=== PATIENT | male | born 1970 | race African-American/Black ===

== ENCOUNTER 2017-10-28 07:04 | Emergency (ER) | payer SELFPAY ==
[~2017-10-28] VITALS: Ht 175.3 cm; Wt 106.6 kg
[2017-10-28 07:17] VITALS: BP 136/73
[2017-10-28] MEDS ORDERED: DIAZ5TAB PO (07:28)
[2017-10-28] MEDS ORDERED: IBUP-1060 PO (07:28)
[2017-10-28] MEDS ORDERED: HYDR-971 PO (07:28)
--- NOTE | 2017-10-28 07:43 | PHYS DOC ---
Past Medical History Past Medical History: Pneumonia, STD Past Surgical History: No Surgical History Alcohol Use: Occasionally Drug Use: Marijuana Adult General Chief Complaint Chief Complaint: BACK PAIN - NO INJURY [facility] HPI Patient is a 47 year old male who presents with neck pain. The patient does have a known prior history of chronic low back pain. He also states that he has been sleeping on a floor over the last 5 years because mattresses cause his back to hurt. Patient states he normally sleeps very restlessly and it is not uncommon for him to wake up with various musculoskeletal pain complaints. Today , he presents complaining of right-sided neck pain and muscle spasm that started 4 days earlier. states he awoke with the symptoms. He did not have any trauma. He had no numbness, tingling, weakness. The pain is located over the right side of the neck and does not radiate. He does have some subjective limitation of range of motion due to the pain. Review of Systems Review of Systems Constitutional: Denies fever or chills Eyes: Denies change in visual acuity, redness, or eye pain HENT: Denies nasal congestion or sore throat Respiratory: Denies cough or shortness of breath Cardiovascular: No additional information not addressed in HPI : Denies dysuria or hematuria Musculoskeletal: chronic recurrent back pain Integument: Denies rash or skin lesions Neurologic: Denies headache Endocrine: Denies polyuria All other systems were reviewed and found to be within normal limits, except as documented in this note. Allergies Allergies Allergies Coded Allergies Type Severity Reaction Last Updated Verified No Known Drug Allergies 03/02/16 No Physical Exam Physical Exam Constitutional: Well developed, well nourished, no acute distress, non-toxic appearance HENT: Normocephalic, atraumatic, bilateral external ears normal, oropharynx moist Neck: Palpable muscle spasm over the right trapezius muscle. Some limitation of range of motion with rotation of the head to the left and also sidebending to the left compared to the right. These activities to cause pain and spasm on the right side of the neck. There is no midline posterior cervical spine tenderness and no step-offs. Cardiovascular:Heart rate regular rhythm, no murmur Lungs & Thorax: Bilateral breath sounds clear to auscultation Skin: Warm, dry, no erythema Extremities: 5/5 motor strength all extremities Neurologic: Alert and oriented X 3 Psychologic: Affect normal Current Patient Data Vital Signs Vital Signs Date Time Temp Pulse Resp B/P (MAP) Pulse Ox O2 Delivery O2 Flow Rate FiO2 10/28/17 07:17 98.1 79 18 136/73 (94) 99 Room Air 98.1 EKG EKG [] Radiology/Procedures Radiology/Procedures [] Course & Med Decision Making Course & Med Decision Making Pertinent Labs and Imaging studies reviewed. (See chart for details) Patient is evaluated in the emergency department for symptoms most consistent with torticollis. He has no focal neurologic findings. He had been using Tylenol at home with minimal relief. Today, he is driving and is not given any medications in the emergency department. At discharge, he is prescribed ibuprofen for baseline pain control. He is given Valium for muscle relaxants, and [place] for severe pain. Appropriate use of these medications is described and all of his questions are answered prior to discharge home. Patient is agreeable. He will return to the ER for any new or worsening symptoms or follow up with his primary care doctor. Dragon Disclaimer Dragon Disclaimer This electronic medical record was generated, in whole or in part, using a voice recognition dictation system. Departure Departure Impression: Primary Impression: Torticollis, acute Disposition: HOME, SELF-CARE Condition: GOOD Patient Instructions: Torticollis, Acute Scripts Ibuprofen (IBUPROFEN) 800 Mg Tablet 800 MG PO PRN TID, #30 TAB take with food or milk to avoid upsetting stomach Prov: MOE OLIVARES DO 10/28/17 Hydrocodone/Apap 5-325 (NORCO 5-325 TABLET) 1 Each Tablet 1-2 EACH PO PRN Q6HRS PRN for severe pain, #20 as needed for pain Prov: MOE OLIVARES DO 10/28/17 Diazepam (VALIUM) 5 Mg Tablet 5 MG PO TID PRN for MUSCLE SPASMS, #21 TAB Prov: MOE OLIVARES DO 10/28/17 MOE OLIVARES DO Oct 28, 2017 07:43
== END 2017-10-28 07:47 | disposition home or self-care (01) ==
LOC: ER 07:04
DX: M43.6 Torticollis (principal); M54.5 Low back pain; G89.29 Other chronic pain
CPT/HCPCS: 99283

== ENCOUNTER 2020-12-15 17:55 | Inpatient (IN) | payer SELFPAY ==
[~2020-12-15] VITALS: Ht 175.3 cm; Wt 105.3 kg
[~2020-12-15 17:55] MED LIST: DIAZ5TAB PO; HYDR-3164 PO; IBUP-1060 PO
[2020-12-15] MEDS ORDERED: DEXAMETHASONE SOD PHOS 4 MG/ML VIAL IVP ONE (18:15)
[2020-12-15] MEDS ORDERED: IV NORMAL SALINE 1000ML BAG 1,000 ML IV ONE ×2 (18:15→21:30)
[2020-12-15] MEDS ORDERED: cefTRIAXone IV Push 1 GM VIAL. IVP ONE (18:30)
[2020-12-15] MEDS ORDERED: ACETAMINOPHEN 500 MG TABLET PO ONE (18:30)
[2020-12-15 18:33] LABS: BASO % 0 % (0-3); EOS # 0.1 x10^3/uL (0.0-0.7); EOS % 1 % (0-3); HEMATOCRIT 43.5 % (39.0-53.0); HEMOGLOBIN 14.9 g/dL (13.0-17.5); LYMPH # 0.4 x10^3/uL (1.0-4.8); LYMPH % 4 % (24-48); MEAN CORPUSCULAR HEMOGLOBIN 30 pg (25-35); MEAN CORPUSCULAR HGB CONC 34 g/dL (31-37); MEAN CORPUSCULAR VOLUME 88 fL (79-100); MONO # 1.8 x10^3/uL (0.0-1.1); MONO % 19 % (0-9); NEUT # 6.9 x10^3/uL (1.8-7.7); NEUT % 75 % (31-73); PLATELET COUNT 292 x10^3/uL (140-400); RED BLOOD COUNT 4.96 x10^6/uL (4.30-5.70); RED CELL DISTRIBUTION WIDTH 14.5 % (11.5-14.5); WHITE BLOOD COUNT 9.1 x10^3/uL (4.0-11.0)
--- NOTE | 2020-12-15 18:37 | PHYS DOC ---
Past Medical History Past Medical History: Pneumonia, STD, TB Additional Past Medical Histor: COVID-/NOVEMBER 2020 Past Surgical History: No Surgical History Smoking Status: Never Smoker Alcohol Use: Occasionally Drug Use: Marijuana General Adult EDM: Chief Complaint: SHORTNESS OF BREATH HPI: HPI: Patient is a 50 year old male with past medical history of tuberculosis in 2009 and COVID-19 in November 28 is presenting today with shortness of breath, weakness, headache, nonproductive cough, issues with taste for about 3 days. Patient states he did have a little bit of pleuritic chest pain a few days ago but this is since gone away. Chest pain only occurred when the patient coughed. Patient does state that he tested positive for Covid in November. Patient does state that he did get better after his Covid infection, however he did get worse again about 3 days ago. Patient says he has gotten vaccinated with 1 shot. Patient says he took Tylenol 500 mg last night. This did not help. Patient denies any nausea, vomiting, diarrhea, constipation. Patient denies any significant urinary symptoms like frequency and urgency or blood but does endorse a darker color to his urine. Review of Systems: Review of Systems: Constitutional: Nurses fevers denies chills Eyes: Denies redness or eye pain HENT: Denies nasal congestion or sore throat Respiratory: Endorses nonproductive cough and shortness of breath Cardiovascular: Denies palpitations but endorses some chest pain a few days ago that was worse with coughing GI: Denies abdominal pain, nausea, or vomiting : Denies dysuria or hematuria but endorses some darkening of the urine Musculoskeletal: Denies back pain or joint pain Integument: Denies rash or skin lesions Neurologic: Denies headache, focal weakness or sensory changes Complete systems were reviewed and found to be within normal limits, except as documented in this note. Heart Score: C/O Chest Pain: No Current Medications: Current Medications Medications (Trade) Dose Ordered Sig/Liseth Start Time Stop Time Status Last Admin Dose Admin Acetaminophen (Tylenol) 500 mg 1X ONCE 12/15/20 18:30 12/15/20 18:31 UNV Ceftriaxone Sodium (Rocephin) 1 gm 1X ONCE 12/15/20 18:30 12/15/20 18:31 UNV Dexamethasone Sodium Phosphate (Decadron) 10 mg 1X ONCE 12/15/20 18:15 11/7/21 18:16 UNV Sodium Chloride 1,000 ml @ 1,000 mls/hr 1X ONCE 12/15/20 18:15 12/15/20 19:14 UNV Allergies: Allergies: Allergies Coded Allergies Type Severity Reaction Last Updated Verified No Known Drug Allergies 03/02/16 No Physical Exam: PE: Constitutional: Well developed, well nourished, no acute distress, non-toxic appearance HENT: Normocephalic, atraumatic Eyes: PERRL, EOMI, conjunctiva normal, no discharge Neck: Normal range of motion, no tenderness, supple, no neck stiffness Lungs & Thorax: No respiratory distress, equal chest rise and fall, lung sounds clear to auscultation bilaterally with no crackles or wheezes Abdomen: Soft, no tenderness Skin: Warm, dry, no erythema, no rash Back: No tenderness, no CVA tenderness Extremities: No tenderness, ROM intact, no edema Neurologic: Alert and oriented X 3, normal motor function, normal sensory function, no focal deficits noted Psychologic: Affect normal, judgment normal Current Patient Data: Vital Signs: Vital Signs Date Time Temp Pulse Resp B/P (MAP) Pulse Ox O2 Delivery O2 Flow Rate FiO2 12/15/20 18:04 101.5 120 17 156/86 (109) 99 Room Air 101.5 EKG: EK: Sinus tachycardia with a rate of 116 bpm, normal axis, no significant ST segment changes, no T wave inversions, P waves inverted in V1 and V2, MI 108 ms, QRS 90 ms, QT/QTc 296/417 ms Radiology/Procedures: Radiology/Procedures: PROCEDURE: CT ANGIOGRAPHY CHEST CT angiography chest with contrast PQRS statement: CT scans at this facility use dose reduction including either automated exposure control, iterative reconstructions, and /or weight based radiation dosing via mA and kV modification when appropriate to reduce radiation dose to as low as reasonably achievable. Contrast: 100 mL Omnipaque 350 intravenous contrast with 3-D MIP reconstructions of the arteries acquired. HISTORY: Dyspnea with exertion, fever, cough. FINDINGS: At the AP window the mediastinum there is a oblong soft tissue nodule measuring 3.1 x 1.7 cm which may be an enlarged lymph node rightward of which are 2 smaller prominent lymph nodes measuring 1 cm each, there is soft tissue edema surrounding this adenopathy which also surrounds the aortic arch and takeoff of the great vessels at the upper mediastinum although the aorta and great vessels demonstrate no dissection or wall thickening or other abnormality. No pericardial effusion evident. Esophagus is normal. The heart size normal. No pulmonary artery emboli. Calcified granulomas right upper lobe and a 2 cm large calcified lymph node right hilum. At the left upper lobe there is a solid irregular and finally spiculated oblong nodule measuring 13 x 6 mm image 30, more superiorly at the left upper lobe apex separate area of multifocal nodularity largest of which measures 8 mm on image 15. 4 mm solid nodule left upper lobe anteriorly image 53. Mild atelectasis inferior lingula. 5 mm oblong nodule right upper lobe image 35. Mild fibrosis right upper lobe apex. No pleural effusions. Bones are unremarkable. IMPRESSION: 1. No pulmonary emboli. 2. Mediastinal adenopathy at the AP window largest lymph node measuring 3.1 x 1.7 cm. There is mild mediastinal edema surrounding the adenopathy as well as surrounding the aortic arch and great vessels however no vascular abnormality is evident. Given the presence of left upper lobe suspicious nodules this is concerning for metastatic adenopathy. 3. Dominant 13 x 8 mm solid irregular finely spiculated nodule of the left upper lobe concerning for lung malignancy. There are smaller nodules at the left upper lobe apex measuring 8 mm or less in size which are indeterminate. 5 mm right upper lobe nodule indeterminate. Electronically signed by: Leidy Lacy MD (12/15/2020 7:46 PM) [facility] [place] DICTATED and SIGNED BY: LEIDY LACY MD Course & Med Decision Making: Course & Med Decision Making 50-year-old male with past medical history of tuberculosis in 2009 and COVID-19 about a month ago in November presents today with shortness of breath, headache, generalized weakness, nonproductive cough, and decreased taste. Patient states that he did get better after his Covid infection but then recently got worse about 3 days ago patient denies any burning or frequency or blood in the urine but endorses darkening of color. Patient is febrile at 101.5 and tachycardic at 117 and therefore does meet SIRS criteria. Patient is satting at 99% on room air. Patient also has elevated liver enzymes and bilirubin. Considering this, the patient meets criteria for severe sepsis. Patient CT scan demonstrated spiculated lung nodule and multiple mediastinal lymph nodes. This may be due to history of tuberculosis or metastatic cancer or atypical infection. Suspecting pulmonary source of infection. Troponin was negative and lactic acid was within normal limits. Empiric antibiotics given. Patient requiring admission for further evaluation and treatment. Discussed with Dr. Carter (hospitalist) who is in agreement with admission. Discussed findings and plan with patient, who acknowledges understanding and agreement. COVID-19 CRITERIA: The patient was evaluated during the global COVID-19 pandemic, and that diagnosis was suspected/considered upon their initial presentation. Their evaluation, treatment and testing was consistent with current guidelines for patients who present with complaints or symptoms that may be related to COVID-19. Dragon Disclaimer: Dragon Disclaimer: This electronic medical record was generated, in whole or in part, using a voice recognition dictation system. Departure Departure Impression: Primary Impression: Severe sepsis Additional Impressions: History of COVID-19 Hyperbilirubinemia Elevated LFTs Pulmonary nodule Disposition: ADMITTED INPATIENT Admitting Physician: EFREN Jessica) Condition: GUARDED Referrals: NO PCP (PCP) COVID-19 Assessment: COVID-19 Patient Risks: Age 65 or older: No Sign of co-morbidity: No Exp to person + for COVID: Yes (Patient tested positive in last 3 weeks) Exp to PUI: No Travel from affected area: No Lower respiratory symptoms: Yes Fever: Yes Other: Yes PPE Use: Full PPE with N95 mask or PAPR: Yes Critical Care Time Critical care time was 30 minutes which includes time at bedside, spent in discussion of patient's care with specialists and/or family members, with interpretation of laboratory and/or radiological studies and is exclusive of dick bailey. REGINO CANAS DO Dec 15, 2020 18:37
[2020-12-15] MEDS ORDERED: DEXAMETHASONE SOD PHOS 20 MG/5 ML VIAL. ONE (18:43)
[2020-12-15 18:46] LABS: CALCIUM 8.7 mg/dL (8.5-10.1); CREATININE 1.1 mg/dL (0.7-1.3); GFR 86.4; POTASSIUM 3.3 mmol/L (3.5-5.1)
[2020-12-15 18:49] LABS: INFLUENZA A PATIENT NEGATIVE (NEGATIVE); INFLUENZA B PATIENT NEGATIVE (NEGATIVE)
[2020-12-15 18:53] LABS: ALBUMIN 3.1 g/dL (3.4-5.0); ALBUMIN/GLOBULIN RATIO 0.6 (1.0-1.7); TOTAL BILIRUBIN 3.8 mg/dL (0.2-1.0); TOTAL PROTEIN 8.1 g/dL (6.4-8.2)
[2020-12-15 19:01] LABS: CREATINE KINASE 185 U/L (39-308)
[2020-12-15] MEDS ORDERED: IOHEXOL 350 MG/ML 100 ML VIAL. IV ONE (19:15)
[2020-12-15 19:18] LABS: % BANDS 20 % (0-9); % EOS 1 % (0-5); % LYMPHS 7 % (24-48); % MONOS 13 % (0-10); % SEGS 59 % (35-66)
[2020-12-15 19:19] LABS: PLT ESTIMATE ADEQUATE (ADEQUATE)
--- NOTE | 2020-12-15 19:48 | RAD ---
CT angiography chest with contrast PQRS statement: CT scans at this facility use dose reduction including either automated exposure cont rol, iterative reconstructions, and /or weight based radiation dosing via mA and kV modification when appropriate to reduce radiation dose to as low as reasonably achievable. Contrast: 100 mL Omnipaque 350 intravenous contrast with 3-D MIP reconstructions of the arteries acqu ired. HISTORY: Dyspnea with exertion, fever, cough. FINDINGS: At the AP window the mediastinum there is a oblong soft tissue nodule measuring 3.1 x 1.7 c m which may be an enlarged lymph node rightward of which are 2 smaller prominent lymph nodes measurin g 1 cm each, there is soft tissue edema surrounding this adenopathy which also surrounds the aortic a rch and takeoff of the great vessels at the upper mediastinum although the aorta and great vessels de monstrate no dissection or wall thickening or other abnormality. No pericardial effusion evident. Eso phagus is normal. The heart size normal. No pulmonary artery emboli. Calcified granulomas right upper lobe and a 2 cm large calcified lymph node right hilum. At the left upper lobe there is a solid irre gular and finally spiculated oblong nodule measuring 13 x 6 mm image 30, more superiorly at the left upper lobe apex separate area of multifocal nodularity largest of which measures 8 mm on image 15. 4 mm solid nodule left upper lobe anteriorly image 53. Mild atelectasis inferior lingula. 5 mm oblong n odule right upper lobe image 35. Mild fibrosis right upper lobe apex. No pleural effusions. Bones are unremarkable. IMPRESSION: 1. No pulmonary emboli. 2. Mediastinal adenopathy at the AP window largest lymph node measuring 3.1 x 1.7 cm. There is mild m ediastinal edema surrounding the adenopathy as well as surrounding the aortic arch and great vessels however no vascular abnormality is evident. Given the presence of left upper lobe suspicious nodules this is concerning for metastatic adenopathy. 3. Dominant 13 x 8 mm solid irregular finely spiculated nodule of the left upper lobe concerning for lung malignancy. There are smaller nodules at the left upper lobe apex measuring 8 mm or less in size which are indeterminate. 5 mm right upper lobe nodule indeterminate. Electronically signed by: Amandeep Lacy MD (12/15/2020 7:46 PM) [facility]AMPUSDAYDAY
--- NOTE | 2020-12-15 20:34 | EKG ---
[facility] [address] [place] [address] Test Date: 2020-12-15 Test Time: 18:09:53 Pat Name: АЛЕКСАНДР BOLTON Department: Room: Gender: M [employer] Operator: : 1970 Requested By: REGINO CANAS Order Number: [id number] Reading MD: Mark Grajeda Measurements Intervals Yeso Rate: 116 P: 90 [place]: 108 QRS: 64 QRSD: 90 T: 29 QT: 296 QTc: 417 Interpretive Statements SINUS TACHYCARDIA LEFT ATRIAL ABNORMALITY ABNORMAL ECG RI6.02 No previous ECG available for comparison Electronically Signed On 12-16-2020 9:00:58 DIRECTOR ATHLETIC by Mark Grajeda
[2020-12-15 20:46] LABS: BILIRUBIN,URINE LARGE (NEG); CLARITY,URINE CLEAR; COLOR,URINE ORANGE; NITRITE,URINE NEGATIVE (NEG); PROTEIN,URINE 100 mg/dL (NEG-TRACE)
[2020-12-15 20:52] LABS: BACTERIA,URINE 0 /HPF (0-FEW); RBC,URINE OCC /HPF (0-2); WBC,URINE 0 /HPF (0-4)
[2020-12-15] MEDS ORDERED: ONDANSETRON PF 4 MG/2 ML VIAL. IVP PRN (21:15)
[2020-12-15] MEDS ORDERED: ACETAMINOPHEN 325 MG TABLET. PO PRN (21:15)
[2020-12-15] MEDS ORDERED: AZITHRMYCN 500MG IVPB FOR OMNI 250 ML IV ONE (21:30)
[2020-12-15] MEDS ORDERED: IV NORMAL SALINE 500ML BAG 500 ML IV ONE (21:30)
[2020-12-16 03:01] VITALS: BP 122/72
[2020-12-16 07:00] VITALS: BP 121/71
[2020-12-16 11:00] VITALS: BP_SYST 180; BP_SYST 99; BP_DIAS 66; BP_DIAS 82
--- NOTE | 2020-12-16 11:28 | NUR ---
SW following. Discussed with RN, pt from home alone, room air, cardiac diet, rapid COVID-19 negative. Med Assist following for self pay status. SW will continue to follow.
[2020-12-16] MEDS ORDERED: guaiFENesin/CODEINE 100mg/10mg 5 ML LIQUID PO PRN (11:30)
--- NOTE | 2020-12-16 11:40 | HP ---
DATE OF SERVICE: 12/16/2020 ADMIT DATE: 12/15/2020 CHIEF COMPLAINT: Shortness of breath. HISTORY OF PRESENT ILLNESS: The patient is a pleasant 50-year-old male who has a history of tuberculosis in 2009 and COVID-19 in 2020. Last night, he presented to the ER with shortness of breath and cough, had a little headache, been occurring for about 3 days, rated at 7/10. He also had some pain with coughing. The ER physician did a CAT scan of the chest, which showed nodules that were suspicious for malignancy, the largest measuring 3.1 x 1.7 cm. There was also a 13 x 8 mm solid irregular fine spiculated nodule in the left upper lobe concerning for malignancy. I discussed the case with ER physician. We admitted the patient with consultation to Pulmonary Medicine. PAST MEDICAL HISTORY: Pneumonia, STDs, TB, COVID-19, marijuana use. ALLERGIES: None. FAMILY HISTORY: Diabetes. SOCIAL HISTORY: He smokes marijuana. No drink or drugs. When I asked his occupation, he stated "I do as little as possible as I worked hard when I was in my 20s". MEDICATIONS: Reviewed. Please refer to the MRAD. REVIEW OF SYSTEMS: GENERAL: No history of weight change, weakness or fevers. SKIN: No bruising, hair changes or rashes. EYES: No blurred, double or loss of vision. NOSE AND THROAT: No history of nosebleeds, hoarseness or sore throat. HEART: No history of palpitations, chest pain or shortness of breath on exertion. LUNGS: Denies cough, hemoptysis, wheezing or shortness of breath. GASTROINTESTINAL: Denies changes in appetite, nausea, vomiting, diarrhea or constipation. GENITOURINARY: No history of frequency, urgency, hesitancy or nocturia. NEUROLOGIC: Denies history of numbness, tingling, tremor or weakness. PSYCHIATRIC: No history of panic, anxiety or depression. ENDOCRINE: No history of heat or cold intolerance, polyuria or polydipsia. EXTREMITIES: Denies muscle weakness, joint pain, pain on walking or stiffness. PHYSICAL EXAMINATION: VITALS: Within normal limits and are stable. GENERAL: No apparent distress. Alert and oriented. HEENT: Normal cephalic atraumatic, external auditory canals are patent. EYES: Extraocular muscles are intact, pupils are equally round and reactive to light and accommodation. MUSCULOSKELETAL: Well developed, well nourished, good range of motion. ENDOCRINE: No thyromegaly was palpated. LYMPHATICS: No cervical chain or axillary nodes were noted. HEMATOPOIETIC: No bruising. NECK: Supple, no JVD, no thyromegaly was noted. LUNGS: Clear to auscultation in all lung monge without rhonchi or wheezing. HEART: RRR, S1, S2 present. Peripheral pulses intact, no obvious murmurs were noted. ABDOMEN: Soft, nontender. Positive bowel sounds no organomegaly, normal bowel sounds. EXTREMITIES: Without any cyanosis, clubbing, or edema. Pedal pulses intact, Homans sign is negative. NEUROLOGIC: Normal speech, normal tone. A and O x 3, moves all extremities, no obvious focal deficits. PSYCHIATRIC: Normal affect, normal mood. Stable. SKIN: No ulcerations or rashes, good skin turgor, no jaundice. VASCULAR: Good capillary refill, neurovascular bundle appears to be intact. IMAGING DATA: CT of the chest shows possible metastatic disease with a 3.1 x 1.7 cm nodule and a 13 x 8 mm spiculated nodule in the left upper lobe. Influenza testing negative. COVID testing negative. Hematology normal. Electrolytes pending. Urinalysis negative. ASSESSMENT AND PLAN: Shortness of breath and cough with abnormal CAT scan suspicious for malignancy. The patient has been admitted. We have consulted Dr. Pickett. For now, we are doing cardiac monitoring. We gave him a dose of azithromycin and ceftriaxone and steroids in the ER. P.r.n. Zofran. Home meds. Deep venous thrombosis prophylaxis. Full code. Serial enzymes. P.r.n. Tylenol. ROYCE/KARISHMA DR: ROYCE/chanel TID: [id number]
--- NOTE | 2020-12-16 11:58 | CONS ---
DATE OF CONSULTATION: 12/16/2020 PULMONARY CONSULTATION ATTENDING PHYSICIAN: Garrison Catrer DO. REASON FOR CONSULTATION: Abnormal CT chest. HISTORY OF PRESENT ILLNESS: The patient is a 50-year-old obese male with a BMI of 34. 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 He states he was on 2 drugs for 9 months. The patient states when he was dismissed from long-term, he was hospitalized at [facility] in 2009. At that time, he was told that he had active TB. [facility] 9 [facility]. He states he took 4 medications. The patient states he started to have some cough and chills and some shortness of breath at the beginning of November. He did a self test for COVID and was positive. He did not require any hospitalization. The patient was brought into the hospital with complaint of fever. He said he has some shortness of breath. He felt that the symptoms were similar to COVID. He had some dark urine as well. He has a fever of 101.5. The patient underwent CT chest, which was reviewed by me. There is a spiculated density in the left upper lobe measuring 13 x 8 mm in size. There is another smaller nodule 8 mm in size in the left lobe apex and 5 mm in the right upper lobe. There is mediastinal adenopathy at the AP window measuring 3.1 x 1.7 cm. Consultation requested for further evaluation and management. PAST MEDICAL HISTORY: Significant for TB, treated in 2009. He was also treated for PPD positive in prison in 2007. History of COVID-19 pneumonia beginning of 11/2020. PAST SURGICAL HISTORY: No recent surgery. SOCIAL HISTORY: He smokes weed and occasional alcohol. Denies tobacco use. ALLERGIES: None. MEDICATIONS: Reviewed as listed in the MRAD including antibiotic, doxycycline. REVIEW OF SYSTEMS: A 10-point system obtained. Pertinent positives discussed in my present illness, otherwise noncontributory. PHYSICAL EXAMINATION: VITAL SIGNS: Reviewed. He had a T-max of 101.5. Blood pressure stable. Visual exam done due to COVID-19 suspicion. No obvious paradoxical breathing. He is on room air. LABORATORY DATA: Reviewed. COVID rapid is negative. White cell count 9.1. IMPRESSION: 1. Abnormal CT chest with irregular spiculated density 13 mm in size in the left upper lobe. There are other tiny smaller nodules in the left apex and right upper lobe. There is adenopathy in the AP window. This is a patient who has history of tuberculosis and was treated in 2009. There is no old CT chest available for comparison. These findings on the CT chest could be all related to healed tuberculosis. However, the possibility of a lung malignancy cannot be ruled out. At this point, I would recommend either to repeat a CT chest in 3 months or do a PET scan as an outpatient. 2. High-grade fever of 101.5 in the patient who was diagnosed with COVID at the beginning of November. He did not require any hospitalization. His symptoms are similar to last month. It is certainly possible he may have recurrent COVID or extension of his COVID. No obvious pneumonia seen on the CT chest. Rule out other sources of infection as well, suggest urinary tract infection. 3. History of marijuana use. RECOMMENDATIONS: 1. Continue to monitor fever. 2. Obtain PCR for COVID. 3. Continue empiric antibiotics. 4. We would recommend doing a repeat CT chest in 3 months as an outpatient versus a PET scan. The patient has limited resources. We will talk to child protective services social worker at the time of discharge. 5. Discussed with RN. We will be available for further recommendations. JULIOCESAR DR: Aidan TID: [id number]
[2020-12-16] MEDS: DOXYCYCLINE HYCLATE 100 MG in IV DEXTROSE 5% 100ML 100 ML IV SCH ×2 (12:52→20:19)
[2020-12-16 15:00] VITALS: BP 116/61
[2020-12-16 19:00] VITALS: BP 118/75
[2020-12-16 22:38] VITALS: BP 122/72
[2020-12-17] VITALS (7 sets, daily range): BP systolic 93–132; BP diastolic 58–74
[2020-12-17 06:41] LABS: BASO % 0 % (0-3); EOS # 0.1 x10^3/uL (0.0-0.7); EOS % 1 % (0-3); HEMATOCRIT 40.5 % (39.0-53.0); HEMOGLOBIN 13.5 g/dL (13.0-17.5); LYMPH # 0.5 x10^3/uL (1.0-4.8); LYMPH % 6 % (24-48); MEAN CORPUSCULAR HEMOGLOBIN 29 pg (25-35); MEAN CORPUSCULAR HGB CONC 33 g/dL (31-37); MEAN CORPUSCULAR VOLUME 88 fL (79-100); MONO # 1.2 x10^3/uL (0.0-1.1); MONO % 15 % (0-9); NEUT # 6.5 x10^3/uL (1.8-7.7); NEUT % 79 % (31-73); PLATELET COUNT 301 x10^3/uL (140-400); RED BLOOD COUNT 4.62 x10^6/uL (4.30-5.70); RED CELL DISTRIBUTION WIDTH 14.7 % (11.5-14.5); WHITE BLOOD COUNT 8.2 x10^3/uL (4.0-11.0)
[2020-12-17 07:00] LABS: CALCIUM 8.8 mg/dL (8.5-10.1); GFR 96.5; POTASSIUM 3.7 mmol/L (3.5-5.1)
[2020-12-17] MEDS: DOXYCYCLINE HYCLATE 100 MG in IV DEXTROSE 5% 100ML 100 ML IV SCH ×2 (09:11→20:48)
--- NOTE | 2020-12-17 11:18 | NUR ---
SW following. Discussed with RN, pt from home alone, room air, cardiac diet, COVID-19 negative. Blood cultures pending - IV abx. Pt has a history of TB. Med Assist following for self pay status. SW will continue to follow.
--- NOTE | 2020-12-17 12:52 | PDOC ---
[facility] PROGRESS NOTE Date of Service DOS: DATE: 12/17/20 TIME: 12:52 Chief Complaint Chief Complaint Shortness of breath Cough Fevers History of TB Abnormal CAT scan Pneumonia, STDs, TB, recovered COVID-19, marijuana use. History of Present Illness History of Present Illness 12/17/2020 Patient seen and examined He seems a little depressed Discussed with RN Chart reviewed Vitals/I&O Vitals/I&O: Vital Signs Date Time Temp Pulse Resp B/P (MAP) Pulse Ox O2 Delivery O2 Flow Rate FiO2 12/17/20 11:00 98.2 72 18 101/64 (76) 96 98.2 12/17/20 08:00 Room Air 12/16/20 11:00 I & O 12/16/20 12/16/20 12/17/20 15:00 23:00 07:00 Intake Total 900 ml Output Total 0 ml Balance 0 ml 900 ml Physical Exam General: Alert, Other (Depressed) Heart: Regular rate Lungs: Clear Extremities: No clubbing Skin: No rashes Labs Labs: Laboratory Tests Test 12/17/20 06:15 White Blood Count 8.2 x10^3/uL (4.0-11.0) Red Blood Count 4.62 x10^6/uL (4.30-5.70) Hemoglobin 13.5 g/dL (13.0-17.5) Hematocrit 40.5 % (39.0-53.0) Mean Corpuscular Volume 88 fL (79-100) Mean Corpuscular Hemoglobin 29 pg (25-35) Mean Corpuscular Hemoglobin Concent 33 g/dL (31-37) Red Cell Distribution Width 14.7 % (11.5-14.5) Platelet Count 301 x10^3/uL (140-400) Neutrophils (%) (Auto) 79 % (31-73) Lymphocytes (%) (Auto) 6 % (24-48) Monocytes (%) (Auto) 15 % (0-9) Eosinophils (%) (Auto) 1 % (0-3) Basophils (%) (Auto) 0 % (0-3) Neutrophils # (Auto) 6.5 x10^3/uL (1.8-7.7) Lymphocytes # (Auto) 0.5 x10^3/uL (1.0-4.8) Monocytes # (Auto) 1.2 x10^3/uL (0.0-1.1) Eosinophils # (Auto) 0.1 x10^3/uL (0.0-0.7) Basophils # (Auto) 0.0 x10^3/uL (0.0-0.2) Sodium Level 139 mmol/L (136-145) Potassium Level 3.7 mmol/L (3.5-5.1) Chloride Level 102 mmol/L (98-107) Carbon Dioxide Level 29 mmol/L (21-32) Anion Gap 8 (6-14) Blood Urea Nitrogen 12 mg/dL (8-26) Creatinine 1.0 mg/dL (0.7-1.3) Estimated GFR (Cockcroft-Gault) 96.5 Glucose Level 114 mg/dL (70-99) Calcium Level 8.8 mg/dL (8.5-10.1) Assessment and Plan Assessmemt and Plan Problems Medical Problems: (1) Elevated LFTs Status: Acute (2) History of COVID-19 Status: Acute (3) Hyperbilirubinemia Status: Acute (4) Pulmonary nodule Status: Acute (5) Severe sepsis Status: A Shortness of breath Cough Fevers History of TB Abnormal CAT scan Pneumonia, STDs, TB, recovered COVID-19, marijuana use. Plan Doxycycline Monitor his vital signs for recurrent fevers Trend labs Home meds DVT prophylaxis Full code Per pulmonary we will repeat a CAT scan in about 3 months and we certainly appreciate their input Hope to discharge tomorrow morning if he is stable Per pulmonary recommendations please see the following and we certainly agree and appreciate their input; RECOMMENDATIONS: 1. Continue to monitor fever. 2. Obtain PCR for COVID. 3. Continue empiric antibiotics. 4. We would recommend doing a repeat CT chest in 3 months as an outpatient versus a PET scan. The patient has limited resources. We will talk to dialysis social worker at the time of discharge. 5. Discussed with RN. We will be available for further recommendations. Comment Review of Relevant I have reviewed the following items dayanna (where applicable) has been applied. Justifications for Admission Other Justification JHON DIXON III, DO Dec 17, 2020 12:52
[2020-12-17] MEDS: LACTOBACILLUS RHAMNOSUS GG 1 CAPSULE. PO SCH (20:47)
[2020-12-18 03:00] VITALS: BP 120/60
[2020-12-18 05:47] LABS: BASO % 0 % (0-3); EOS # 0.2 x10^3/uL (0.0-0.7); EOS % 2 % (0-3); HEMATOCRIT 41.2 % (39.0-53.0); HEMOGLOBIN 13.7 g/dL (13.0-17.5); LYMPH # 0.5 x10^3/uL (1.0-4.8); LYMPH % 5 % (24-48); MEAN CORPUSCULAR HEMOGLOBIN 29 pg (25-35); MEAN CORPUSCULAR HGB CONC 33 g/dL (31-37); MEAN CORPUSCULAR VOLUME 88 fL (79-100); MONO # 1.6 x10^3/uL (0.0-1.1); MONO % 17 % (0-9); NEUT # 6.9 x10^3/uL (1.8-7.7); NEUT % 76 % (31-73); PLATELET COUNT 316 x10^3/uL (140-400); RED BLOOD COUNT 4.68 x10^6/uL (4.30-5.70); RED CELL DISTRIBUTION WIDTH 14.8 % (11.5-14.5); WHITE BLOOD COUNT 9.2 x10^3/uL (4.0-11.0)
[2020-12-18 06:04] LABS: CALCIUM 9.1 mg/dL (8.5-10.1); CREATININE 1.1 mg/dL (0.7-1.3); GFR 86.4; POTASSIUM 3.4 mmol/L (3.5-5.1)
[2020-12-18 07:00] VITALS: BP 109/65
[2020-12-18] MEDS: LACTOBACILLUS RHAMNOSUS GG 1 CAPSULE. PO SCH (09:16)
[2020-12-18] MEDS: DOXYCYCLINE HYCLATE 100 MG in IV DEXTROSE 5% 100ML 100 ML IV SCH (09:18)
--- NOTE | 2020-12-18 10:12 | PDOC ---
[facility] PROGRESS NOTE Date of Service DOS: DATE: 12/18/20 TIME: 10:10 Chief Complaint Chief Complaint Shortness of breath Cough Fevers History of TB Abnormal CAT scan Pneumonia, STDs, TB, recovered COVID-19, marijuana use. History of Present Illness History of Present Illness 12/18/2020 Patient seen and examined Chart reviewed Discussed with case management Discussed with RN He seems to be at his baseline is okay with going home We will discharge and have him follow-up with pulmonary for repeat CAT scan in 3 months 12/17/2020 Patient seen and examined He seems a little depressed Discussed with RN Chart reviewed Vitals/I&O Vitals/I&O: Vital Signs Date Time Temp Pulse Resp B/P (MAP) Pulse Ox O2 Delivery O2 Flow Rate FiO2 12/18/20 07:00 98.6 84 18 109/65 (80) 97 Room Air 98.6 I & O 12/17/20 12/17/20 12/18/20 15:00 23:00 07:00 Intake Total 140 ml 0 ml Balance 140 ml 0 ml Physical Exam General: Alert, Other (Depressed) Heart: Regular rate Lungs: Clear Extremities: No clubbing Skin: No rashes Labs Labs: Laboratory Tests Test 12/18/20 04:35 White Blood Count 9.2 x10^3/uL (4.0-11.0) Red Blood Count 4.68 x10^6/uL (4.30-5.70) Hemoglobin 13.7 g/dL (13.0-17.5) Hematocrit 41.2 % (39.0-53.0) Mean Corpuscular Volume 88 fL (79-100) Mean Corpuscular Hemoglobin 29 pg (25-35) Mean Corpuscular Hemoglobin Concent 33 g/dL (31-37) Red Cell Distribution Width 14.8 % (11.5-14.5) Platelet Count 316 x10^3/uL (140-400) Neutrophils (%) (Auto) 76 % (31-73) Lymphocytes (%) (Auto) 5 % (24-48) Monocytes (%) (Auto) 17 % (0-9) Eosinophils (%) (Auto) 2 % (0-3) Basophils (%) (Auto) 0 % (0-3) Neutrophils # (Auto) 6.9 x10^3/uL (1.8-7.7) Lymphocytes # (Auto) 0.5 x10^3/uL (1.0-4.8) Monocytes # (Auto) 1.6 x10^3/uL (0.0-1.1) Eosinophils # (Auto) 0.2 x10^3/uL (0.0-0.7) Basophils # (Auto) 0.0 x10^3/uL (0.0-0.2) Sodium Level 136 mmol/L (136-145) Potassium Level 3.4 mmol/L (3.5-5.1) Chloride Level 101 mmol/L (98-107) Carbon Dioxide Level 27 mmol/L (21-32) Anion Gap 8 (6-14) Blood Urea Nitrogen 12 mg/dL (8-26) Creatinine 1.1 mg/dL (0.7-1.3) Estimated GFR (Cockcroft-Gault) 86.4 Glucose Level 103 mg/dL (70-99) Calcium Level 9.1 mg/dL (8.5-10.1) Assessment and Plan Assessmemt and Plan Problems Medical Problems: (1) Elevated LFTs Status: Acute (2) History of COVID-19 Status: Acute (3) Hyperbilirubinemia Status: Acute (4) Pulmonary nodule Status: Acute (5) Severe sepsis Status: Acute Shortness of breath Cough Fevers History of TB Abnormal CAT scan Pneumonia, STDs, TB, recovered COVID-19, marijuana use. Plan Probable discharge this afternoon for now continue the following and see dicta tion; Doxycycline Monitor his vital signs for recurrent fevers Trend labs Home meds DVT prophylaxis Full code Per pulmonary we will repeat a CAT scan in about 3 months and we certainly appreciate their input Discharge later today Comment Review of Relevant I have reviewed the following items dayanna (where applicable) has been applied. Medications: Current Medications Medications (Trade) Dose Ordered Sig/Liseth Route PRN Reason Start Time Stop Time Status Last Admin Dose Admin Lactobacillus Rhamnosus (Culturelle) 1 cap BID PO 12/17/20 21:00 12/18/20 09:16 Justifications for Admission Other Justification JHON DIXON III DO Dec 18, 2020 10:12
[2020-12-18] MEDS ORDERED: DOXY50CA PO (10:16)
[2020-12-18] MEDS ORDERED: GUAI120L35 PO (10:16)
--- NOTE | 2020-12-18 10:43 | DS ---
DATE OF DISCHARGE: 12/18/2020 ADMISSION DIAGNOSES: Shortness of breath and cough, abnormal CAT scan, history of TB, probable alcohol abuse, history of sexually transmitted disease, previous COVID-19, marijuana use, transaminitis. DISCHARGE DIAGNOSES: Resolving shortness of breath, abnormal CAT scan probably secondary to old scar tissue from his previous TB, resolving transaminitis. CONSULTS: Dr. Pickett. PROCEDURES: None. HOSPITAL COURSE: The patient is a pleasant, middle-aged male who presented with shortness of breath and cough, was concerned he might have pneumonia. We did a CAT scan that was suspicious for possible malignancy. I did consult Dr. Pickett. He feels like these scars were probably mostly just secondary to his old TB and I certainly agree and appreciate his input. Dr. Pickett recommended to repeat the CAT scan in 3 months. Today, I saw and examined the patient. He is doing well and wants to go home. We plan to discharge with close outpatient followup. DISPOSITION: Home. ACTIVITY: As tolerated. DIET: Low sodium. MEDICATIONS: Please see the MRAD. Doxycycline 100 p.o. b.i.d. and guaifenesin cough syrup with Codeine 5 mL q. 6. TOTAL TIME: 32 minutes. ROYCE/DWIGHT DR: ROYCE/chanel TID: [id number]
[2020-12-18 11:00] VITALS: BP 124/64
--- NOTE | 2020-12-18 13:39 | NUR ---
patient discharged home. meds and follow up reviewed. IV removed intact. patient stable upon dc. transportation provided.
== END 2020-12-18 12:00 | disposition home or self-care (01) | DRG 871 ==
LOC: ER 17:55 → ED HOLD 22:30 → 5 SOUTH 12-16 01:47
PROVIDERS: ADMIT Internal Medicine; ATTEND Internal Medicine
DX: A41.9 Sepsis, unspecified organism (principal); J18.9 Pneumonia, unspecified organism; R17 Unspecified jaundice; C34.92 Malignant neoplasm of unspecified part of left bronchus or lung; E66.9 Obesity, unspecified; F12.90 Cannabis use, unspecified, uncomplicated; R65.20 Severe sepsis without septic shock; Z68.34 Body mass index [BMI] 34.0-34.9, adult; Z83.3 Family history of diabetes mellitus; Z86.11 Personal history of tuberculosis; Z86.19 Personal history of other infectious and parasitic diseases; F10.10 Alcohol abuse, uncomplicated
CPT/HCPCS: 36415; 71275; 80048; 80053; 81001; 82553; 83605; 83690; 83735; 83880; 84484; 85007; 85025; 87040; 87426; 87804; 93005; J0456; J0696; J1100; J3490; J7030; J7040; J7060; Q9967; U0003; U0005; G0378